=== PATIENT | male | born 1960 | race Caucasian/White ===

== ENCOUNTER 2017-08-19 08:10 | Outpatient (CLI) | payer BC ==
--- NOTE | 2017-08-19 09:40 | MRI ---
MRI CERVICAL SPINE: History: Left hand numbness. Technique: Multiplanar, multisequence noncontrast enhanced MRI images of the cervical spine obtained . Comparison: 01-19-06 FINDINGS: The spinal cord is unremarkable with no evidence of cord masses or lesions. C1-2: Unremarkable. C2-3: Broad based disc osteophyte complex seen compressing the thecal sac resulting in mild central spinal stenosis. The right neural foramen is patent. There is moderate left C2-3 neural foraminal na rrowing due to left sided facet hypertrophy. C3-4: There is disc desiccation seen. There is a broad based disc osteophyte complex resulting in mi ld central spinal stenosis. There is moderate right and moderate to severe left sided C3-4 neural fo raminal narrowing due to uncal vertebral osteophyte hypertrophy. C4-5: There is disc desiccation seen. There is a broad based disc osteophyte complex centrally compr essing the thecal sac. No significant evidence of central stenosis seen. Moderate bilateral C4-5 chandu ral foraminal narrowing is seen due to uncal vertebral osteophyte hypertrophy. C5-6: Disc desiccation is seen. There is a broad based central and right paracentral disc osteophyte complex, slightly larger in the right paracentral region. This compresses the thecal sac. No defini te of cord compression is seen. Mild left and no significant right sided C5-6 neural foraminal narro wing is seen due to uncal vertebral osteophyte hypertrophy. C6-7: Disc desiccation is seen. There is disc space height loss. Broad based anterior and posterior osteophytes seen at this level. A moderate degree of central and right paracentral thecal sac compre ssion is seen due to the right central and paracentral osteophyte. Moderate to severe bilateral C6-7 neural foraminal narrowing is seen due to uncal vertebral osteophyte hypertrophy. C7-T1: There is a broad based left paracentral disc bulge mildly but no significantly compressing th e thecal sac. The neural foramen are patent. IMPRESSION: Multilevel neural foraminal narrowing as described above. There is also some central thecal sac comp ression at C5-6 and C6-7. POS: [facility]
--- NOTE | 2017-08-19 10:07 | MRI ---
NONCONTRAST ENHANCED MRI IMAGES OF THE LUMBAR SPINE: History: Back pain for 6-8 months. Technique: Multiplanar, multisequence noncontrast enhanced MRI images of the lumbar spine obtained. 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 This was seen on the previous exa m and is unchanged in size or shape. T12-L1, L1-2, L2-3: Unremarkable. L3-4: There is mild to moderate bilaterally L3-4 facet hypertrophy. Minimal ligamentum flavum hypert rophy is seen. A small amount of fluid is seen in the L3-4 facet joints. The neural foramen are allred nt. L4-5: There is mild anterolisthesis of L4 on L5. There is bilateral facet hypertrophy seen. Fluid is seen in both facet joints, greater in the right than left facet joints. There is a mild broad based disc bulge. There is a right sided L4-5 foraminal disc protrusion extending into the right L4-5 chandu ral foramen. This was not present on the patient's previous MRI from July 2014. L5-S1: There is bilateral facet hypertrophy seen. There is a broad based disc bulge and broad based central disc protrusion. Disc osteophyte complex is seen centrally and posteriorly. No significant e vidence of thecal sac compression is seen. There is moderate bilateral neural foraminal narrowing du e to the broad based disc bulge as well as the bilateral facet hypertrophy. IMPRESSION: Increasing L4-5 facet degenerative changes and fluid. There is also a newly developed L4-5 focal dis c protrusion abutting the exiting right L4 nerve root. No other significant internal change is seen. POS: [facility]
--- NOTE | 2017-08-19 10:29 | RAD ---
FOUR VIEWS LUMBAR SPINE: Indication: Lumbar radiculopathy. FINDINGS: There is grade I anterolisthesis of L4 on L5 with mild retrolisthesis of L3 on L4. There is accentua tion of the anterolisthesis at L4-5 with flexion and slight reduction with extension. The retrolisth esis at L3-4 is stable. There is mild stable retrolisthesis of L2 on L3 which is also stable on the flexion and extension dynamic lateral projections. There is multilevel disc degenerative disease. Th ere is severe facet osteoarthrosis at L4-5 and L5-S1. SI joints are normal appearing. IMPRESSION: 1. Moderate spondylosis of the lumbar spine most pronounced at L4-5 and L5-S1. 2. Grade I anterolisthesis of L4 on L5 that is slightly worse with flexion and is slightly reduced w ith extension. 3. Mild retrolisthesis of L2 on L3 and L3 on L4, stable on the dynamic lateral projections. POS: [facility]
--- NOTE | 2017-08-19 11:33 | RAD ---
SIX VIEW CERVICAL SPINE: Indication: Neck stiffness and soreness. FINDINGS: There is multilevel disc degenerative and facet osteoarthritic change with straightening of the norm al cervical lordosis. No definite acute fracture or subluxation is evident. No abnormal translation of motion is noted. Lateral masses appear symmetric. IMPRESSION: Moderate to severe cervical spondylosis POS: [facility]
== END 2017-08-19 08:11 | disposition home or self-care (01) ==
LOC: TBSIIMAG 08:10
PROVIDERS: ATTEND Surgery
DX: M47.22 Other spondylosis with radiculopathy, cervical region (principal); M47.27 Other spondylosis with radiculopathy, lumbosacral region; M51.16 Intervertebral disc disorders with radiculopathy, lumbar region; M43.16 Spondylolisthesis, lumbar region
CPT/HCPCS: 72050; 72120; 72141; 72148

== ENCOUNTER 2018-02-02 15:44 | Outpatient (CLI) | payer BC ==
[2018-02-02] MEDS ORDERED: Gadobenate Dimeglumine 529 MG/1 ML (20ML VIAL) ONE (16:59)
--- NOTE | 2018-02-02 18:08 | MRI ---
MRI BRAIN WITH AND WITHOUT CONTRAST: (Trigeminal nerve protocol) 02/02/18 HISTORY: 57-year-old male with G50.0 trigeminal neuralgia. Left facial paresthesia for three to four wee ks. TECHNIQUE: Multiplanar, multisequence MRI of the brain, plus additional thin slices through the cranial nerves, obtained pre and post IV injection of 20 mL of Multihance gadolinium based contrast agent. FINDINGS: there is no evidence of mass, abnormal enhancement, or morphologic abnormality, involving either the left or right trigeminal nerve, including cisternal, Meckel's caves, orbital apex, cavernous sinuses, segments, or the root entry zones at the henrry. There is no vascular impingement on the root entry zo gladys of the trigeminal nerves. The foramen ovale and foramen rotundum appear normal bilaterally. Ptery gopalatine fossa is normal bilaterally. There is no restricted diffusion, abnormal intra-axial signal, mass effect, abnormal enhancement, mas s midline shift, or obstructive hydrocephalus, involving the brain. No extra-axial fluid collection. IMPRESSION: Negative. POS: [facility]
== END 2018-02-02 15:45 | disposition home or self-care (01) ==
LOC: TBSIIMAG 15:44
PROVIDERS: ATTEND Psychiatry & Neurology Neurology
DX: G50.0 Trigeminal neuralgia (principal)
CPT/HCPCS: 70553; A9579

== ENCOUNTER 2021-04-16 17:31 | Emergency (ER) | payer BC ==
[~2021-04-16 17:31] MED LIST: Iopamidol-370 76% 500 ML 1 ML ONE
[2021-04-16] MEDS ORDERED: cefTRIAXone\\ROCEPHIN 2 GM VIAL ONE (18:14)
[2021-04-16] MEDS ORDERED: Acetaminophen 500 MG TAB ONE (18:14)
[2021-04-16 18:24] LABS: #Basophils 0.1 thou/uL (0.0-0.2); #Eosinphils 0.1 thou/uL (0.0-0.7); #Lymphocytes 1.2 thou/uL (1.20-3.40); #Monocytes 0.6 thou/uL (0.11-0.59); #Neutrophils 7.2 thou/uL (1.40-6.50); %Basophils 0.6 % (0.0-1.0); %Eosinophils 0.9 % (0.0-10.0); %Lymphocytes 13.4 % (21.0-51.0); %Monocytes 6.5 % (0.0-10.0); %Neutrophils 78.6 % (42.0-75.0); Hemoglobin 16.2 g/dL (14.0-18.0); Mean Corpuscular HGB CONC 34.8 g/dL (32.0-36.0); Mean Corpuscular Hemoglobin 32.9 pg (27.0-31.0); Mean Corpuscular Volume 94.7 fL (78.0-98.0); Platelet Count 127 thou/uL (130-400); RBC Distribution Width 11.9 % (11.5-14.5); Red Blood Cell (RBC) Count 4.91 mill/uL (4.70-6.10); White Blood Cell (WBC) Count 9.1 thou/uL (4.8-10.8)
[2021-04-16 18:36] LABS: PTT 30.5 sec (22.9-36.1); Prothrombin Time 13.5 sec (12.0-14.7)
[2021-04-16 18:37] LABS: D-Dimer Test 0.65 *mcg/mL (0.27-0.43)
[2021-04-16 18:47] LABS: ALT (SGPT) 54 U/L (8-55); AST (SGOT) 34 U/L (5-34); Albumin 4.4 g/dL (3.4-4.8); Alkaline Phosphatase 33 U/L (40-110); Anion Gap 17 mmol/L (10-20); BUN (Urea Nitrogen) 16 mg/dL (8.4-25.7); Bilirubin, Total 0.7 mg/dL (0.2-1.2); CK (CPK) 266 U/L (30-200); Calc. Creatinine Clearance 0 mL/min (70-130); Calcium 9.5 mg/dL (7.8-10.44); Carbon Dioxide 24 mmol/L (23-31); Chloride 100 mmol/L (98-107); Globulin 3.1 g/dL (2.4-3.5); Glucose 113 mg/dL (80-115); Lipase 37 U/L (8-78); Potassium 3.9 mmol/L (3.5-5.1); Protein, Total 7.5 g/dL (5.8-8.1); Sodium 137 mmol/L (136-145)
[2021-04-16] MEDS ORDERED: Vancomycin 1 GM/200 ML BAG ONE (18:50)
[2021-04-16 19:08] LABS: Bilirubin Negative (Negative); Blood, Urine Negative (Negative); Clarity Clear (Clear); Glucose, Urine (Dipstick) Normal (Negative); Ketone, Urine Negative (Negative); Leukocyte 250 Leu/uL (Negative); Nitrite 1+ (Negative); Protein, Urine (Dipstick) 10 mg/dL (Neg-Trace); RBC/HPF 0-3 HPF (0-3); Specific Gravity, Urine 1.016 (1.002-1.036); Squamous Epithelial None Seen HPF (0-3); Urobilinogen Normal mg/dL (Less than 2); WBC/HPF 21-50 HPF (0-3)
[2021-04-16 19:09] LABS: Bacteria/HPF 1+ HPF (None Seen)
== END 2021-04-16 20:31 | disposition home or self-care (01) ==
LOC: ERS 17:31
DX: U07.1 COVID-19 (principal); N39.0 Urinary tract infection, site not specified; E11.9 Type 2 diabetes mellitus without complications; I10 Essential (primary) hypertension; Z79.899 Other long term (current) drug therapy; Z79.84 Long term (current) use of oral hypoglycemic drugs
CPT/HCPCS: 36415; 71045; 71275; 80053; 81003; 81015; 82550; 83605; 83690; 83880; 84484; 85025; 85379; 85610; 85730; 87040; 87086; 93005; 96365; 96367; J0696; J3370; Q9967

== ENCOUNTER 2021-04-19 20:54 | Emergency (ER) | payer BC | END 2021-04-19 23:02 | LOC: ERS 20:54 | DX: Z53.21 Procedure and treatment not carried out due to patient leaving prior to being seen by health care provider (principal) ==

== ENCOUNTER 2021-06-06 08:01 | Outpatient (CLI) | payer BC ==
[2021-06-06 09:34] LABS: Bilirubin Neg (Negative); Blood, Urine Negative (Negative); Clarity Clear (Clear); Glucose, Urine (Dipstick) Normal (Negative); Ketone, Urine Negative (Negative); Leukocyte Negative (Negative); Nitrite Negative (Negative); Protein, Urine (Dipstick) Negative (Neg-Trace); Urobilinogen Normal mg/dL (Less than 2)
[2021-06-06 09:52] LABS: Anion Gap 17 mmol/L (10-20); BUN (Urea Nitrogen) 30 mg/dL (8.4-25.7); Calc. Creatinine Clearance 0 mL/min (70-130); Carbon Dioxide 19 mmol/L (23-31); Chloride 108 mmol/L (98-107); Glucose 106 mg/dL (80-115); Potassium 4.8 mmol/L (3.5-5.1); Sodium 139 mmol/L (136-145)
[2021-06-06 09:55] LABS: Bacteria/HPF Rare-Few HPF (None Seen); RBC/HPF 0-3 HPF (0-3); Squamous Epithelial 0-3 HPF (0-3); WBC/HPF 0-3 HPF (0-3)
[2021-06-06 09:56] LABS: Calcium Oxalate Crystals 2+ HPF (None Seen)
[2021-06-06 20:37] LABS: SARS-CoV-2 PCR by NAA DETECTED (NotDetected)
== END 2021-06-06 08:02 | disposition home or self-care (01) ==
LOC: LABBT 08:01
PROVIDERS: ATTEND Urology
DX: U07.1 COVID-19 (principal); Z01.818 Encounter for other preprocedural examination; N40.1 Benign prostatic hyperplasia with lower urinary tract symptoms
CPT/HCPCS: 80048; 81001; 87086; U0003; U0005

== ENCOUNTER 2022-09-19 08:25 | Outpatient (CLI) | payer BC | END 2022-09-19 08:26 | disposition home or self-care (01) | LOC: TBSIIMAG 08:25 | PROVIDERS: ATTEND Anesthesiology Pain Medicine | DX: M47.22 Other spondylosis with radiculopathy, cervical region (principal) | CPT/HCPCS: 72141 ==

== ENCOUNTER 2024-02-10 07:01 | Outpatient (CLI) | payer BC | END 2024-02-10 07:02 | disposition home or self-care (01) | LOC: BICULT 07:01 | PROVIDERS: ATTEND Urology | DX: N20.0 Calculus of kidney (principal); Z87.440 Personal history of urinary (tract) infections | CPT/HCPCS: 74018; 76770 ==

== ENCOUNTER 2024-12-24 02:17 | Emergency (ER) | payer BC ==
[2024-12-24] MEDS ORDERED: Ketorolac Tromethamine 30 MG (1 mL) VIAL ONE ×2 (04:03→07:00)
[2024-12-24] MEDS ORDERED: Dicyclomine 20 MG TAB ONE (04:03)
[2024-12-24] MEDS ORDERED: Morphine 4 MG/ML VIAL ONE (04:03)
[2024-12-24] MEDS ORDERED: Ondansetron PF 4 MG/2 ML Vial ONE (04:03)
[2024-12-24 04:40] LABS: #Basophils 0.04 10x3/uL (0.0-0.2); %Basophils 0.4 % (0.0-1.0); %Eosinophils 1.2 % (0.0-10.0); %Lymphocytes 12.7 % (21.0-51.0); %Monocytes 6.7 % (0.0-10.0); %Neutrophils 78.6 % (42.0-75.0); Hematocrit 42.5 % (42.0-52.0); Hemoglobin 14.8 g/dL (14.0-18.0); Mean Corpuscular HGB CONC 34.8 g/dL (32.0-36.0); Mean Corpuscular Hemoglobin 31.8 pg (27.0-31.0); Mean Corpuscular Volume 91.2 fL (78.0-98.0); Mean Platelet Volume 10.5 fL (7.4-10.4); Platelet Count 191 10x3/uL (130-400); RBC Distribution Width 12.9 % (11.5-14.5); Red Blood Cell (RBC) Count 4.66 mill/uL (4.70-6.10)
[2024-12-24 05:09] LABS: Troponin I Less than 0.010 ng/mL (< 0.028)
[2024-12-24 05:11] LABS: ALT (SGPT) 23 U/L (Less than 45); AST (SGOT) 22 U/L (11-34); Albumin 4.2 g/dL (3.1-4.5); Alkaline Phosphatase 32 U/L (40-110); Anion Gap 15 mmol/L (10-20); BUN (Urea Nitrogen) 31 mg/dL (8.4-25.7); Bilirubin, Total 0.3 mg/dL (0.3-1.2); Calc. Creatinine Clearance 0 mL/min (70-130); Carbon Dioxide 20 mmol/L (23-31); Chloride 111 mmol/L (98-107); Estimated GFR 57; Globulin 2.9 g/dL (2.4-3.5); Glucose 171 mg/dL (80-115); Lipase 38 U/L (8-78); Protein, Total 7.1 g/dL (5.8-8.1); Sodium 142 mmol/L (136-145)
[2024-12-24 05:24] LABS: Bacteria/HPF None Seen HPF (None Seen); Bilirubin Negative (Negative); Blood, Urine Negative (Negative); CAUTI Indications for Culture Pelvic or flank pain; Clarity Clear (Clear); Glucose, Urine (Dipstick) Normal (Negative); Ketone, Urine Negative (Negative); Leukocyte Negative Leu/uL (Negative); Nitrite Negative (Negative); Protein, Urine (Dipstick) Negative (Neg-Trace); Specific Gravity, Urine 1.027 (1.002-1.036); Squamous Epithelial 0-3 HPF (0-3); Urine Culture Reflex No No; Urobilinogen Normal mg/dL (Less than 2); WBC/HPF 0-3 HPF (0-3); pH, Urine 5.5 (5.0-9.0)
== END 2024-12-24 07:10 | disposition home or self-care (01) ==
LOC: ERS 02:17
DX: N13.2 Hydronephrosis with renal and ureteral calculous obstruction (principal); E11.9 Type 2 diabetes mellitus without complications; I10 Essential (primary) hypertension
CPT/HCPCS: 74176; 80053; 81001; 83690; 84484; 85025; 93005; 96374; 96375; 96376; J1885; J2270; J2405

== ENCOUNTER 2024-12-26 11:50 | Outpatient (CLI) | payer BC ==
[2024-12-26 14:43] LABS: #Basophils 0.04 10x3/uL (0.0-0.2); %Basophils 0.4 % (0.0-1.0); %Eosinophils 0.7 % (0.0-10.0); %Lymphocytes 17.1 % (21.0-51.0); %Monocytes 9.9 % (0.0-10.0); %Neutrophils 71.5 % (42.0-75.0); Hematocrit 42.2 % (42.0-52.0); Hemoglobin 14.6 g/dL (14.0-18.0); Mean Corpuscular HGB CONC 34.6 g/dL (32.0-36.0); Mean Corpuscular Hemoglobin 31.5 pg (27.0-31.0); Mean Corpuscular Volume 90.9 fL (78.0-98.0); Mean Platelet Volume 10.7 fL (7.4-10.4); Platelet Count 175 10x3/uL (130-400); RBC Distribution Width 12.6 % (11.5-14.5); Red Blood Cell (RBC) Count 4.64 mill/uL (4.70-6.10)
[2024-12-26 15:02] LABS: INR-International Normal Ratio 1.2
[2024-12-26 15:03] LABS: PTT 33.2 sec (22.9-36.1)
[2024-12-26 15:09] LABS: Anion Gap 15 mmol/L (10-20); BUN (Urea Nitrogen) 31 mg/dL (8.4-25.7); Calc. Creatinine Clearance 0 mL/min (70-130); Carbon Dioxide 24 mmol/L (23-31); Chloride 104 mmol/L (98-107); Estimated GFR 34; Glucose 96 mg/dL (80-115); Potassium 4.5 mmol/L (3.5-5.1); Sodium 138 mmol/L (136-145)
[2024-12-26 15:43] LABS: Bacteria/HPF None Seen HPF (None Seen); Bilirubin Negative (Negative); Blood, Urine 1+ (Negative); Clarity Clear (Clear); Glucose, Urine (Dipstick) Normal (Negative); Ketone, Urine Negative (Negative); Leukocyte 250 Leu/uL (Negative); Nitrite Negative (Negative); Protein, Urine (Dipstick) Negative (Neg-Trace); Specific Gravity, Urine 1.007 (1.002-1.036); Squamous Epithelial 0-3 HPF (0-3); Urobilinogen Normal mg/dL (Less than 2); pH, Urine 6.5 (5.0-9.0)
== END 2024-12-26 11:51 | disposition home or self-care (01) ==
LOC: LABBT 11:50
PROVIDERS: ATTEND Urology
DX: Z01.818 Encounter for other preprocedural examination (principal); N20.1 Calculus of ureter
CPT/HCPCS: 71046; 80048; 85025; 85610; 85730; 87086; 93005; 93010

== ENCOUNTER 2024-12-28 07:46 | Day surgery (SDC) | payer BC ==
[2024-12-26 12:42] VITALS: BMI 39.2
[2024-12-28] MEDS ORDERED: PROPOFOL 20 ML ONE (10:39)
[2024-12-28] MEDS ORDERED: Rocuronium Bromide 10 MG/ML (10ML VIAL) ONE (10:40)
[2024-12-28] MEDS ORDERED: Lidocaine 2% PF 5 ML VIAL ONE (10:40)
[2024-12-28] MEDS ORDERED: Sodium Chloride 0.9% 100 ML ONE (11:06)
[2024-12-28] MEDS ORDERED: cefTRIAXone (ROCEPHIN) 2 GM VIAL ONE (11:06)
[2024-12-28] MEDS ORDERED: Iopamidol 30 ML ONE (11:50)
[2024-12-28] MEDS ORDERED: fentaNYL PF 100 MCG/2 ML SYRINGE ONE (11:51)
[2024-12-28] MEDS ORDERED: SUCCINYLCHOLINE/SOD CL,ISO/PF 200 MG/10 ML SYRINGE FS ONE (11:53)
[2024-12-28] MEDS ORDERED: Dexamethasone 4 mg/ml Vial ONE (12:08)
[2024-12-28] MEDS ORDERED: Ondansetron PF 4 MG/2 ML Vial ONE (12:08)
[2024-12-28] MEDS ORDERED: Phenazopyridine HCl 100 MG TAB ONE (12:35)
== END 2024-12-28 14:10 | disposition home or self-care (01) ==
LOC: SDC 07:46
PROVIDERS: ATTEND Urology
PROC: 0TCB8ZZ Extirpation of Matter from Bladder, Via Natural or Artificial Opening Endoscopic (ICD-10-PCS; principal; 2024-12-28)
DX: N21.0 Calculus in bladder (principal); N20.2 Calculus of kidney with calculus of ureter; N40.1 Benign prostatic hyperplasia with lower urinary tract symptoms; R35.0 Frequency of micturition; R35.1 Nocturia; I10 Essential (primary) hypertension; G47.33 Obstructive sleep apnea (adult) (pediatric); E11.42 Type 2 diabetes mellitus with diabetic polyneuropathy; E78.5 Hyperlipidemia, unspecified; E66.9 Obesity, unspecified; Z68.34 Body mass index [BMI] 34.0-34.9, adult; Z86.16 Personal history of COVID-19; Z98.890 Other specified postprocedural states; Z88.5 Allergy status to narcotic agent; Z79.82 Long term (current) use of aspirin; Z79.1 Long term (current) use of non-steroidal anti-inflammatories (NSAID); Z79.84 Long term (current) use of oral hypoglycemic drugs; Z79.85 Long-term (current) use of injectable non-insulin antidiabetic drugs; Z79.899 Other long term (current) drug therapy
CPT/HCPCS: 82365; 88300; J0696; J1100; J2405; J2704; Q9967

== ENCOUNTER 2025-06-10 14:57 | Outpatient (CLI) | payer BC | END 2025-06-10 14:58 | disposition home or self-care (01) | LOC: ULT 14:57 | PROVIDERS: ATTEND Urology | DX: N20.0 Calculus of kidney (principal) | CPT/HCPCS: 76770 ==